=== PATIENT | female | born 1970 | race Two or more races ===

== ENCOUNTER 2017-12-05 16:48 | Emergency (ER) | payer SELFPAY ==
[2017-12-05 17:24] LABS: BILIRUBIN,URINE NEGATIVE (NEG); CLARITY,URINE CLEAR; COLOR,URINE YELLOW; GLUCOSE,URINE NEGATIVE (NEG); NITRITE,URINE NEGATIVE (NEG); PROTEIN,URINE NEGATIVE (NEG-TRACE); UROBILINOGEN,URINE 0.2 mg/dL (0.2 mg/dL)
[2017-12-05] MEDS: HYDROcodone/APAP 5/325MG 1 TAB TABLET PO (17:27)
[2017-12-05] MEDS: NAPROXEN 500 MG TABLET PO (17:27)
[2017-12-05] MEDS: predniSONE 10 MG TABLET PO (17:27)
[2017-12-05] MEDS: CYCLOBENZAPRINE 10 MG TABLET. PO (17:27)
[2017-12-05 17:33] LABS: BACTERIA,URINE 0 /HPF (0-FEW); SQUAMOUS EPITHELIAL CELL,UR FEW /LPF; WBC,URINE 0 /HPF (0-4)
== END 2017-12-05 18:07 | disposition home or self-care (01) ==
LOC: ER 16:48
DX: M54.5 Low back pain (principal); R10.9 Unspecified abdominal pain; R30.0 Dysuria; R50.9 Fever, unspecified; Z88.0 Allergy status to penicillin
CPT/HCPCS: 81001; 99284; J7512